=== PATIENT | male | born 1995 | race Caucasian/White ===

== ENCOUNTER 2016-09-07 22:38 | Emergency (ER) | payer SELFPAY ==
[~2016-09-07] VITALS: Ht 182.9 cm; Wt 77.1 kg
[2016-09-07] MEDS: LIDOCAINE 1% HCL (LOCAL ANESTH.) INJ 20ML MDV ONE (22:50)
[2016-09-07] MEDS ORDERED: LIDOCAINE 1% HCL (LOCAL ANESTH.) INJ 20ML MDV ONE (23:03)
[2016-09-07 23:20] VITALS: BP 111/64
[2016-09-07] MEDS: cefTRIAXone SOD 1,000 MG VL IM ONE (23:37)
[2016-09-07] MEDS: TETANUS-DIPTH-ACEL PERTUSSIS 0.5ML SYRG IM ONE (23:40)
[2016-09-08] MEDS: NEOMYCIN-BACITRACIN-POLYM UNITDOSE PKG TOP OINT TOP ONE (00:05)
== END 2016-09-08 00:53 | disposition home or self-care (01) ==
LOC: ER 22:43
DX: S61.412A Laceration without foreign body of left hand, initial encounter (principal); W25.XXXA Contact with sharp glass, initial encounter; Y93.89 Activity, other specified; Y92.89 Other specified places as the place of occurrence of the external cause; Y99.8 Other external cause status
CPT/HCPCS: 12002; 90471; 90715; 96372; 99284; J0696; J2001